=== PATIENT | female | born 2000 | race Caucasian/White ===

== ENCOUNTER 2022-10-31 19:26 | Emergency (ER) | payer OTHER ==
[2022-10-31 19:41] VITALS: BP 114/70; PULSE 78; RESP 18; TEMP 98.1; BMI 32.2
[2022-10-31 21:26] LABS: BASO % 0.5 % (0-2.0); EOS % 1.1 % (0-4.5); HEMATOCRIT 36.4 % (32.4-45.2); HEMOGLOBIN 12.3 GM/dL (10.7-15.3); LYMPH % 24.2 % (8-40); MCH 31.6 pg (25.7-33.7); MCHC 33.7 g/dl (32.0-36.0); MEAN CELL VOLUME 93.6 fl (80-96); MEAN PLT VOLUME 7.8 fl (7.5-11.1); MONO % 6.1 % (3.8-10.2); NEUT % 68.1 % (42.8-82.8); PLATELET COUNT 318 10^3/uL (134-434); RBC 3.89 M/mm3 (3.60-5.2); WHITE BLOOD COUNT 11.5 K/mm3 (4.0-10.0)
[2022-10-31 21:50] LABS: CALCIUM 8.9 mg/dL (8.5-10.1)
[2022-10-31 21:51] LABS: BLOOD UREA NITROGEN 11.5 mg/dL (7-18)
[2022-10-31 21:54] LABS: CREATININE 0.6 mg/dL (0.55-1.3)
[2022-10-31 21:56] LABS: BILIRUBIN,TOTAL 0.4 mg/dL (0.2-1); TOT PROT 7.5 g/dl (6.4-8.2)
[2022-11-01 00:47] LABS: EPI CELLS 8 /uL (0-25.1); HYALINE CASTS 0 /uL (0-3.1); URINE APPEARANCE CLEAR; URINE BACTERIA 57 /uL (0-1359); URINE BILIRUBIN NEGATIVE (NEGATIVE); URINE COLOR YELLOW; URINE GLUCOSE (UA) NEGATIVE (NEGATIVE); URINE KETONE NEGATIVE (NEGATIVE); URINE LEUK ESTERASE NEGATIVE (NEGATIVE); URINE NITRITE NEGATIVE (NEGATIVE); URINE PROTEIN NEGATIVE (NEGATIVE); URINE RBC 11 /uL (0-23.9); URINE WBC 4 /uL (0-25.8)
== END 2022-11-01 01:50 | disposition home or self-care (01) ==
LOC: JER 19:26
DX: O20.9 Hemorrhage in early pregnancy, unspecified (principal); Z3A.01 Less than 8 weeks gestation of pregnancy
CPT/HCPCS: 36415; 76817-TC; 80053; 81003; 84702; 85025; 86850; 86900; 86901; 87086; 99284-25

== ENCOUNTER 2024-01-02 23:09 | Emergency (ER) | payer OTHER ==
[2024-01-02 23:23] VITALS: BP 112/53; PULSE 80; RESP 18; TEMP 97.9; BMI 30.2
[2024-01-03] MEDS ORDERED: ACETAMINOPHEN INJECTION 100 ML IVPB ONE (00:25)
[2024-01-03] MEDS ORDERED: MAG HYDROX/AL HYDROX/SIMETH 30 ML UNIT-DOSE CUP ONE (00:25)
[2024-01-03] MEDS ORDERED: FAMOTIDINE 20 MG/50 ML IVPB 20 MG/50 ML MG IVPB ONE (00:26)
[2024-01-03] MEDS: ACETAMINOPHEN 1000 MG/100 ML BAG IVPB ONE (00:33)
[2024-01-03] MEDS: MAG HYDROX/AL HYDROX/SIMETH 30 ML UNIT-DOSE CUP PO ONE (00:33)
[2024-01-03 00:36] LABS: BASO % 0.5 % (0-2.0); EOS % 2.1 % (0-4.5); HEMATOCRIT 36.7 % (32.4-45.2); HEMOGLOBIN 12.8 GM/dL (10.7-15.3); LYMPH % 33.5 % (8-40); MCH 32.8 pg (25.7-33.7); MCHC 34.9 g/dl (32.0-36.0); MEAN CELL VOLUME 93.9 fl (80-96); MEAN PLT VOLUME 7.6 fl (7.5-11.1); MONO % 7.7 % (3.8-10.2); NEUT % 56.2 % (42.8-82.8); PLATELET COUNT 336 10^3/uL (134-434); RBC 3.91 M/mm3 (3.60-5.2); RDW 12.3 % (11.6-15.6); WHITE BLOOD COUNT 9.5 K/mm3 (4.0-10.0)
[2024-01-03] MEDS: FAMOTIDINE 20 MG/50 ML IVPB 20 MG/50 ML MG IVPB ONE (00:47)
[2024-01-03 00:57] LABS: POTASSIUM 4.1 mmol/L (3.5-5.1)
[2024-01-03 01:00] LABS: ALBUMIN 4.1 g/dl (3.4-5.0); BLOOD UREA NITROGEN 16.2 mg/dL (7-18); CALCIUM 9.2 mg/dL (8.5-10.1)
[2024-01-03 01:03] LABS: CREATININE 0.8 mg/dL (0.55-1.3)
[2024-01-03 01:05] LABS: BILIRUBIN,TOTAL 0.5 mg/dL (0.2-1); TOT PROT 7.8 g/dl (6.4-8.2)
== END 2024-01-03 03:21 | disposition home or self-care (01) ==
LOC: JER 23:09
PROC: 3E033GC Introduction of Other Therapeutic Substance into Peripheral Vein, Percutaneous Approach (ICD-10-PCS; principal; 2024-01-03)
PROC: 3E033NZ Introduction of Analgesics, Hypnotics, Sedatives into Peripheral Vein, Percutaneous Approach (ICD-10-PCS; 2024-01-03)
DX: R10.12 Left upper quadrant pain (principal); R10.13 Epigastric pain; R11.0 Nausea; R42 Dizziness and giddiness; K52.9 Noninfective gastroenteritis and colitis, unspecified; N83.202 Unspecified ovarian cyst, left side
CPT/HCPCS: 36415; 74177-TC; 80053; 83690; 84703; 85025; 99285-25; J0131; Q9967

== ENCOUNTER 2024-01-06 16:08 | Emergency (ER) | payer OTHER ==
[2024-01-06 16:12] VITALS: BP 151/109; PULSE 74; RESP 20; TEMP 98.4; BMI 30.2
[2024-01-06 17:25] LABS: PH,URINE 7.5 (5.0-8.0); URINE APPEARANCE CLEAR; URINE BILIRUBIN NEGATIVE (NEGATIVE); URINE COLOR YELLOW; URINE GLUCOSE (UA) NEGATIVE (NEGATIVE); URINE KETONE NEGATIVE (NEGATIVE); URINE LEUK ESTERASE NEGATIVE (NEGATIVE); URINE NITRITE NEGATIVE (NEGATIVE); URINE PROTEIN NEGATIVE (NEGATIVE)
[2024-01-06 17:38] LABS: HCG,QUALITATIVE URINE Negative
[2024-01-06] MEDS ORDERED: FAMOTIDINE 20 MG/50 ML IVPB 20 MG/50 ML MG IVPB ONE (18:09)
[2024-01-06 18:11] LABS: BASO % 0.8 % (0-2.0); EOS % 2.3 % (0-4.5); HEMATOCRIT 38.1 % (32.4-45.2); HEMOGLOBIN 13.3 GM/dL (10.7-15.3); LYMPH % 30.4 % (8-40); MCH 32.4 pg (25.7-33.7); MCHC 34.9 g/dl (32.0-36.0); MEAN CELL VOLUME 92.9 fl (80-96); MEAN PLT VOLUME 7.6 fl (7.5-11.1); MONO % 9.6 % (3.8-10.2); NEUT % 56.9 % (42.8-82.8); PLATELET COUNT 337 10^3/uL (134-434); RDW 12.8 % (11.6-15.6); WHITE BLOOD COUNT 8.7 K/mm3 (4.0-10.0)
[2024-01-06] MEDS: FAMOTIDINE 20 MG/50 ML IVPB 20 MG/50 ML MG IVPB ONE (18:15)
[2024-01-06] MEDS ORDERED: ACETAMINOPHEN 500 MG TABLET (FP) ONE ×2 (18:27→18:30)
[2024-01-06 18:35] LABS: POTASSIUM 4.2 mmol/L (3.5-5.1)
[2024-01-06 18:37] LABS: CALCIUM 9.9 mg/dL (8.5-10.1)
[2024-01-06 18:38] LABS: BLOOD UREA NITROGEN 16.7 mg/dL (7-18)
[2024-01-06 18:41] LABS: CREATININE 0.7 mg/dL (0.55-1.3)
[2024-01-06 18:42] LABS: BILIRUBIN,TOTAL 0.4 mg/dL (0.2-1)
[2024-01-06 18:43] LABS: TOT PROT 7.8 g/dl (6.4-8.2)
[2024-01-06] MEDS: ACETAMINOPHEN 500 MG TABLET (FP) PO ONE (20:15)
== END 2024-01-06 21:04 | disposition home or self-care (01) ==
LOC: JER 16:08
PROC: 3E033GC Introduction of Other Therapeutic Substance into Peripheral Vein, Percutaneous Approach (ICD-10-PCS; principal; 2024-01-06)
DX: N83.202 Unspecified ovarian cyst, left side (principal); K29.00 Acute gastritis without bleeding; R10.13 Epigastric pain; R10.12 Left upper quadrant pain; R10.2 Pelvic and perineal pain; R10.32 Left lower quadrant pain; R11.0 Nausea
CPT/HCPCS: 36415; 76705-TC; 76830-TC; 80053; 81003; 83690; 84703; 85025; 93005; 93010; 99285-25